=== PATIENT | female | born 1955 | race Two or more races ===

== ENCOUNTER 2025-01-31 19:07 | Emergency (ER) | payer OTHER ==
[~2025-01-31] VITALS: Ht 172.7 cm; Wt 75.8 kg
[2025-01-31 19:09] VITALS: BP 157/92; PULSE 84; RESP 16; TEMP 98.2; O2SAT 98
--- NOTE | 2025-01-31 19:34 | ED.PDOC ---
Foreign Body HPI Comments 69 y/o F, presents to the ED for CC of foreign body. Patient reports, she swallowed pills with a plastic desiccant covering and now feels as if it is lodged in her throat. Patient reports, being able to eat and drink without difficulty and only endorses moderate discomfort to her left neck. Patient denies difficulty breathing, excessive drooling, bleeding, or coughing. Chief Complaint: Foreign Body Time Seen by MD: 19:20 History of Present Illness: Nurses Notes, Medications, Allergies Allergies: Coded Allergies: Acetaminophen (Verified Allergy, Unknown, 01/31/25) Hydrocodone (Verified Allergy, Unknown, 01/31/25) Mode of Arrival: Ambulatory Timing: Days Duration: Since onset Severity: Moderate Prehospital treatment: None Location: Throat Context: Accidental Foreign Body: Other (pill) Removal: Was not successful Past Medical History PAST MEDICAL HISTORY: High Lipids, HTN Surgical History: Hysterectomy Surgical History (Other): thyroidectomy AVIATION SAFETY OFFICER History: Denies all AVIATION SAFETY OFFICER Hx Family History Family History: Unknown Social History Smoker: Non-Smoker Alcohol: Denies ETOH Use Drugs: Denies Drug Use Lives In: Home Constitutional: denies: chills, diaphoresis, fatigue, fever, malaise, sweats, weakness, others EENTM: reports: others (throat discomfort); denies: blurred vision, double vision, ear bleeding, ear discharge, ear drainage, ear pain, ear ringing, eye pain, eye redness, hearing loss, mouth pain, mouth swelling, nasal discharge, nose bleeding, nose congestion, nose pain, photophobia, tearing, throat pain, throat swelling, voice changes Respiratory: denies: cough, hemoptysis, orthopnea, SOB at rest, shortness of breath, SOB with excertion, stridor, wheezing, others Cardiovascular: denies: chest pain, dizzy spells, diaphoresis, Dyspnea on exertion, edema, irregular heart beat, left arm pain, lightheadedness, palpitations, PND, syncope, others Gastrointestinal: denies: abdomen distended, abdominal pain, blood streaked bowels, constipated, diarrhea, dysphagia, difficulty swallowing, hematemesis, melena, nausea, poor appetite, poor fluid intake, rectal bleeding, rectal pain, vomiting, others Genitourinary: denies: abnormal vagina bleeding, burning, dyspareunia, dysuria, flank pain, frequency, hematuria, incontinence, pain, , vagina discharge, urgency, others Neurological: denies: dizziness, fainting, headache, left sided numbness, left sided weakness, numbness, paresthesia, pre-existing deficit, right sided numbness, right sided weakness, seizure, speech problems, tingling, tremors, weakness, others Musculoskeletal: denies: back pain, gout, joint pain, joint swelling, muscle pain, muscle stiffness, neck pain, others Integumetry: denies: bruises, change in color, change in hair/nails, dryness, laceration, lesions, lumps, rash, wounds, others Allergic/Immunocompromised: denies: Difficulty Healing, Frequent Infections, Hives, Itching, others Hematologic/Lymphatic: denies: anemia, blood clots, easy bleeding, easy bruising, swollen glands, others Endocrine: denies: excessive hunger, excessive sweating, excessive thirst, excessive urination, flushing, intolerance to cold, intolerance to heat, unexplained weight gain, unexplained weight loss, others Psychiatric: denies: anxiety, bipolar disorder, depression, hopeless, panic disorder, schizophrenia, sleepless, suicidal, others All Other Systems: Reviewed and Negative Physical Exam General Appearance: No Apparent Distress HEENT: Normal ENT Inspection, Pharynx Normal, TMs Normal Neck: Full Range of Motion, Non-Tender, Normal, Normal Inspection Respiratory: Chest Non-Tender, Lungs Clear, No Accessory Muscle Use, No Respiratory Distress, Normal Breath Sounds Cardiovascular: No Edema, No JVD, No Murmur, No Gallop, Normal Peripheral Pulses, Regular Rate/Rhythm Breast Exam: Deferred Gastrointestinal: No Organomegaly, Non Tender, No Pulsatile Mass, Normal Bowel Sounds, Soft Genitalia: Deferred Pelvic: Deferred Rectal: Deferred Extremities: No calf tenderness, Normal capillary refill, Normal inspection, Normal range of motion, Non-tender, No pedal edema Musculoskeletal : Apperance: Normal Neurologic: Alert, predatory animal trapper II-XII nml as Tested, No Motor Deficits, Normal Affect, Normal Mood, No Sensory Deficits Cerebellar Function: Normal Reflexes: Normal Skin: Dry, Normal Color, Warm Lymphatic: No Adenopathy Was a procedure done? Was a procedure done?: No FB Differential Dx Differential Diagnosis: Esophageal Obstruction X-Ray, Labs, Meds, VS Vital Signs Date Time Temp Pulse Resp B/P (MAP) Pulse Ox O2 Delivery O2 Flow Rate FiO2 01/31/25 19:09 98.2 84 16 157/92 98 98.2 X-ray of the soft tissue of the neck shows: FINDINGS/IMPRESSION: Multiple metallic surgical clips from thyroid surgery noted over the lateral study of the cervical soft tissues. Can not exclude radiopaque foreign bodies because of the multiple surgical clips. Bony spondylosis and degenerative disc changes throughout the cervical spine. We did speak with Dr. Carvajal and plan was to possibly admit the patient and given Ativan, Protonix and glucagon but the patient is now stating that she would just come back tomorrow. The patient has eloped from the department's Images Reviewed?: Images reviewed and evaluated by me Time of 1ST Reevaluation: 19:50 Reevaluation 1ST: Unchanged Patient Education/Counseling: Diagnosis, Treatment, Prognosis Family Education/Counseling: No Family Present Departure 1 Departure Time of Disposition: 20:55 Impression: Primary Impression: Swallowed foreign body Qualified Codes: T18.9XXA - Foreign body of alimentary tract, part unspecified, initial encounter Disposition: 07 LEFT AWOL/ELOPED Condition: Fair Critical Care Note Critical Care Time?: No Stability Stability form required: No Heart Score Heart Score: Heart Score Response (Comments) Value History N/A 0 EKG N/A 0 Age N/A 0 Risk Factors N/A 0 Troponin N/A 0 Total 0 I personally scribed for RAUL CONTRERAS MD ([email or web address]) on 01/31/25 at 19:34. Electronically submitted by Luci Al ([email or web address]). I personally scribed for RAUL CONTRERAS MD ([email or web address]) on 01/31/25 at 20:26. Electronically submitted by Luci Al ([email or web address]). RAUL CONTRERAS MD Jan 31, 2025 19:34
--- NOTE | 2025-01-31 20:24 | DVH ---
CLINICAL INDICATION: possible fb TECHNIQUE: Surgical clips on the right consistent with thyroid surgery radiographic views of the multiple surgical clips overlying the esophagus and tracheal airway on lateral film were obtained. Comparison: None FINDINGS/IMPRESSION: Multiple metallic surgical clips from thyroid surgery noted over the lateral study of the cervical soft tissues. Can not exclude radiopaque foreign bodies because of the multiple surgical clips. Bony spondylosis and degenerative disc changes throughout the cervical spine.
== END 2025-01-31 21:32 | disposition left against medical advice (07) ==
LOC: ER 19:07
DX: T18.9XXA Foreign body of alimentary tract, part unspecified, initial encounter (principal); I10 Essential (primary) hypertension; E78.5 Hyperlipidemia, unspecified; Z88.5 Allergy status to narcotic agent; Z90.710 Acquired absence of both cervix and uterus; W44.9XXA Unspecified foreign body entering into or through a natural orifice, initial encounter; Y93.89 Activity, other specified; Y92.89 Other specified places as the place of occurrence of the external cause; Y99.8 Other external cause status
CPT/HCPCS: 70360